=== PATIENT | female | born 1950 | race Caucasian/White ===

== ENCOUNTER 2024-08-17 19:06 | Emergency (ER) | payer OTHER, MEDICARE, SELFPAY ==
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
[2024-08-17 19:12] VITALS: BP 180/90; PULSE 77; TEMP 36.8; O2SAT 94; BMI 29.3
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
[2024-08-17 19:20] VITALS: PULSE 66
[2024-08-17] MEDS: ONDANSETRON PF 4 MG/2 ML VIAL IV (19:23)
[2024-08-17] MEDS: MORPHINE SULFATE 2 MG/ML SYRINGE IV (19:24)
[2024-08-17 19:39] LABS: Basophils Percent Auto 0.6 % (0.2-2.0); Eosinophils Absolute Auto 0.1 10^3/uL (0.0-0.7); Eosinophils Percent Auto 1.4 % (0.9-7.0); Hematocrit 39.9 % (36.0-48.0); Hemoglobin 13.4 g/dL (12.0-16.0); Immature Granulocytes Abs Auto 0.07 10^3/uL (0.00-0.03); Lymphocytes Absolute Auto 1.7 10^3/uL (1.2-3.8); Lymphocytes Percent Auto 23.7 % (20.5-60.0); Mean Corpuscular HGB Conc 33.6 g/dL (29.9-35.2); Mean Corpuscular Hemoglobin 29.4 pg (26.7-34.0); Mean Corpuscular Volume 87.5 fL (81.0-99.0); Monocytes Absolute Auto 0.6 10^3/uL (0.3-0.8); Monocytes Percent Auto 8.2 % (1.7-12.0); Neutrophils Absolute Auto 4.6 10^3/uL (1.4-6.5); Neutrophils Percent Auto 65.1 % (43.0-75.0); Platelet Count 279 10^3/uL (150-450); Red Blood Count 4.56 10^6/uL (4.20-5.40); Red Cell Distribution Width 12.6 % (11.0-15.0); White Blood Count 7.1 10^3/uL (4.0-11.0)
[2024-08-17 19:50] LABS: INR 0.98; Prothrombin Time 10.4 sec (9.0-11.6)
[2024-08-17 19:54] LABS: Alanine Aminotransferase 31 U/L (14-59); Albumin Level 3.7 g/dL (3.4-5.0); Alkaline Phosphatase 75 U/L (46-116); Anion Gap 13.9; Aspartate Amino Transferase 28 U/L (15-37); BUN Creatinine Ratio 21.6; Bilirubin Total 0.4 mg/dL (0.2-1.0); Calcium 9.2 mg/dL (8.5-10.1); Carbon Dioxide 25.3 mmol/L (21.0-32.0); Chloride 107 mmol/L (98-107); Estimated GFR (African America 51 (>=60 mL/min/1.73m^2); Estimated GFR (Non-African Ame 42 (>=60 mL/min/1.73m^2); Globulin 3.7 g/dL; Glucose 107 mg/dL (74-106); Potassium 4.2 mmol/L (3.5-5.1); Sodium 142 mmol/L (136-145); Total Protein 7.4 g/dL (6.4-8.2); Troponin I High Sensitivity 14.7 pg/mL (4.0-51.3)
[2024-08-17 20:15] VITALS: BP 173/66; PULSE 73; O2SAT 96
--- NOTE | 2024-08-17 20:22 | ECG_ITS ---
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
[2024-08-17 20:44] VITALS: BP 120/65; PULSE 69; O2SAT 93
[2024-08-17 21:31] VITALS: BP 113/57; PULSE 69
[2024-08-17] MEDS: HYDROCODONE/ACET 5-325 MG TABLET 2 TAB PO (21:54)
== END 2024-08-17 22:15 | disposition home or self-care (01) ==
PROVIDERS: Physician Assistant; Emergency Provider Student in an Organized Health Care Education/Training Program; PCP Family Medicine
DX: S09.8XXA Other specified injuries of head, initial encounter (principal); M54.9 Dorsalgia, unspecified; V43.62XA Car passenger injured in collision with other type car in traffic accident, initial encounter; R07.9 Chest pain, unspecified
CPT/HCPCS: 36415; 70450; 71260; 72125; 72128; 72131; 74177; 80053; 83690; 84484; 85025; 85610; 93005; 96374; 96375; 99284; J2270; J2405; Q9967